=== PATIENT | male | born 1995 | race Caucasian/White ===

== ENCOUNTER 2019-05-12 18:55 | Emergency (ER) | payer MEDICAID ==
[~2019-05-12] VITALS: Wt 81.6 kg
[~2019-05-12 18:55] MED LIST: OMEP20CA16 PO; ONDA8TAB14 PO
[2019-05-12 19:16] VITALS: BP 137/67; PULSE 96; RESP 20
== END 2019-05-12 21:47 | disposition home or self-care (01) ==
LOC: FTE 18:55
DX: R10.13 Epigastric pain (principal); F17.210 Nicotine dependence, cigarettes, uncomplicated
CPT/HCPCS: 99283